=== PATIENT | male | born 1975 | race Caucasian/White ===

== ENCOUNTER 2021-10-08 08:19 | Emergency (ER) | payer SELFPAY ==
[~2021-10-08] VITALS: Ht 134.6 cm; Wt 84.8 kg
[2021-10-08 08:29] VITALS: BP 142/67
[2021-10-08 08:30] VITALS: BP 142/67
--- NOTE | 2021-10-08 08:30 | NUR ---
TOMAS SPECIMEN COLLECTED AND TAKEN TO LAB.
--- NOTE | 2021-10-08 08:38 | NUR ---
DR. ESPINOZA EVALUATING PATIENT AT BEDSIDE.
[2021-10-08] MEDS ORDERED: KETOROLAC 30 MG/ML VIAL IM ONE (08:45)
--- NOTE | 2021-10-08 08:48 | NUR ---
46/M BIB SELF, C/O HEADACHE, CHILLS, MYALGIA, FEVER X3 DAYS. DENIES, N/V/DIARRHEA, CP, SOB, DYSURIA AND HEMATURIA. PATIENT IS COVID VACCINATED WITH 2 SERIES OF PFIZER. 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 PMH: HTN MEDS: TYLENOL NKA
--- NOTE | 2021-10-08 09:04 | NUR ---
PATIENT LAYING IN BED, NO SIGNS OF DISTRESS NOTED AT THIS TIME. WILL CONTINUE TO MONITOR.
--- NOTE | 2021-10-08 09:20 | NUR ---
REASSESSED PAIN, PATIENT REPORTS SOME RELIEF.
--- NOTE | 2021-10-08 10:09 | NUR ---
PATIENT LEFT ED WITHOUT D/C PAPERWORK, ER MD NOTIFIED.
--- NOTE | 2021-10-08 10:09 | NUR ---
Reema carbone in EDM - 10/08/21 at 1019 by [email or web address] PATIENT LEFT ED WITHOUT D/C PAPERWORK
--- NOTE | 2021-10-08 10:21 | NUR ---
The patient's care was reviewed and supervised by Rosa Moore RN.
== END 2021-10-08 10:09 | disposition home or self-care (01) ==
LOC: MED 08:19
DX: R51.9 Headache, unspecified (principal); Z20.822 Contact with and (suspected) exposure to COVID-19; I10 Essential (primary) hypertension
CPT/HCPCS: 87426; 96372; 99283; J1885